=== PATIENT | female | born 1945 | race Two or more races ===

== ENCOUNTER 2017-11-27 11:59 | Emergency (ER) | payer MEDICARE, MEDICAID ==
[~2017-11-27] VITALS: Ht 152.4 cm; Wt 68.0 kg
[~2017-11-27 11:59] MED LIST: AMLO5TAB2 PO; ASPI-605 PO; METO25TA6 PO; MULT-1160 PO; NITR0.4T48 SL
[2017-11-27 12:17] VITALS: BP 129/66
== END 2017-11-27 14:00 | disposition home or self-care (01) ==
LOC: ER 12:04
DX: S86.911A Strain of unspecified muscle(s) and tendon(s) at lower leg level, right leg, initial encounter (principal); I10 Essential (primary) hypertension; Z79.82 Long term (current) use of aspirin; Z88.0 Allergy status to penicillin; X58.XXXA Exposure to other specified factors, initial encounter; Y93.89 Activity, other specified; Y92.89 Other specified places as the place of occurrence of the external cause; Y99.8 Other external cause status
CPT/HCPCS: 93971-TC; A4606; Z7610

== ENCOUNTER 2018-02-15 14:21 | Emergency (ER) | payer MEDICARE, MEDICAID ==
[~2018-02-15] VITALS: Ht 152.4 cm; Wt 68.0 kg
[~2018-02-15 14:21] MED LIST changes: -AMLO5TAB2 PO; +AMLO5TAB7 PO
[2018-02-15 14:38] VITALS: BP 126/97
== END 2018-02-15 15:22 | disposition home or self-care (01) ==
LOC: ER 14:32
DX: R59.0 Localized enlarged lymph nodes (principal); F32.9 Major depressive disorder, single episode, unspecified; F41.9 Anxiety disorder, unspecified; I11.0 Hypertensive heart disease with heart failure; I50.9 Heart failure, unspecified; Z79.82 Long term (current) use of aspirin; Z88.0 Allergy status to penicillin
CPT/HCPCS: A4606; Z7610

== ENCOUNTER 2018-10-21 22:22 | Emergency (ER) | payer MEDICARE, MEDICAID ==
[~2018-10-21] VITALS: Ht 160 cm; Wt 74.8 kg
--- NOTE | 2018-10-21 23:15 | NUR ---
PT BIBFAMILY COMPLAINING OF RIGHT EYE SWELLING WITH PURPLE DISCOLORATION AFTER TRIPPING FROM UNEVEN SIDEWALK. PT DENIES LOC, HEADACHE, N/V. PT IS AAOX4. RESPIRATIONS EVEN AND UNLABORED. NO ACUTE DISTRESS NOTED. WILL CONTINUE TO MONITOR
--- NOTE | 2018-10-21 23:20 | NUR ---
MD AT BEDSIDE FOR EVALUATION
[2018-10-21] MEDS ORDERED: TDAP [DIPH/PERTUSSIS/TET] 0.5 ML VIAL IM ONE ×2 (23:24→23:30)
--- NOTE | 2018-10-21 23:50 | NUR ---
PT BROUGHT BY RADIOLOGY FOR CT
--- NOTE | 2018-10-22 00:06 | NUR ---
PT RETURNED FROM CT
[2018-10-22] MEDS ORDERED: BACI/NEOM/POLY B OINT PKT 1 UDPKT PACKET TP ONE (01:30)
--- NOTE | 2018-10-22 01:35 | NUR ---
Patient discharged to home in stable condition. Written and verbal after care instructions given. Patient verbalizes understanding of instruction. Pt ambulatory with a steady gait.
[2018-10-22 01:36] VITALS: BP 128/74
== END 2018-10-22 01:38 | disposition home or self-care (01) ==
LOC: ER 22:24
DX: S06.0X9A Concussion with loss of consciousness of unspecified duration, initial encounter (principal); S00.83XA Contusion of other part of head, initial encounter; M54.2 Cervicalgia; F41.9 Anxiety disorder, unspecified; F32.9 Major depressive disorder, single episode, unspecified; I10 Essential (primary) hypertension; Z90.49 Acquired absence of other specified parts of digestive tract; Z90.710 Acquired absence of both cervix and uterus; Z98.890 Other specified postprocedural states; Z88.0 Allergy status to penicillin; Z79.82 Long term (current) use of aspirin; Z79.899 Other long term (current) drug therapy; W01.198A Fall on same level from slipping, tripping and stumbling with subsequent striking against other object, initial encounter; Y93.89 Activity, other specified; Y92.89 Other specified places as the place of occurrence of the external cause; Y99.8 Other external cause status
CPT/HCPCS: 70450-TC; 70486-TC; 72125-TC; 90715; A4606; Z7610

== ENCOUNTER 2019-02-11 22:05 | Inpatient (IN) | payer MEDICARE, MEDICAID ==
[~2019-02-11] VITALS: Ht 149.9 cm; Wt 69.6 kg
[~2019-02-11 22:05] MED LIST changes: -AMLO5TAB7 PO; +AMLO5TAB9 PO
--- NOTE | 2019-02-11 22:10 | NUR ---
PT [id number] FROM HOME C/O NONRADIATING SUBSTERNAL CP 08/10 X 30 MIN. 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 DENIES SOB. PT ON MONITOR IN BED 9 WITH FAMILY AT BEDSIDE. WILL CONTINUE TO MONITOR.
--- NOTE | 2019-02-11 22:17 | NUR ---
TECH AT BEDSIDE FOR EKG
[2019-02-11] MEDS ORDERED: IV NS 0.9% 1,000 ML BAG IV ONE (22:30)
[2019-02-11] MEDS ORDERED: NITROGLYCERIN 0.4 MG/TAB BOTTLE SL ONE (22:30)
--- NOTE | 2019-02-11 22:30 | NUR ---
PHLEB AT BEDSIDE FOR BLOOD DRAW
[2019-02-11] MEDS ORDERED: NITROGLYCERIN 0.4 MG/TAB BOTTLE ONE (22:34)
[2019-02-11 22:42] LABS: BASOPHILS % (AUTO) 0.6 % (0.0-2.0); EOSINOPHILS % (AUTO) 1.2 % (0.0-6.0); HEMATOCRIT 33 % (33-45); HEMOGLOBIN 10.9 g/dL (11.5-14.8); LYMPHOCYTES # (AUTO) 1.8 /CMM (0.8-4.8); LYMPHOCYTES % (AUTO) 30.9 % (20.0-44.0); MEAN CORPUSCULAR HGB CONC 33 g/dl (31.0-36.0); MEAN CORPUSCULAR VOLUME 81 fL (82-100); MONOCYTES # (AUTO) 0.4 /CMM (0.1-1.30); MONOCYTES % (AUTO) 7.6 % (2.0-12.0); NEUTROPHILS # (AUTO) 3.5 /CMM (1.8-8.9); NEUTROPHILS % (AUTO) 59.7 % (43.0-81.0); PLATELET COUNT (AUTO) 179 /CMM (150-450); RED BLOOD CELL COUNT(AUTO) 4.02 MIL/uL (4.0-5.2); WHITE BLOOD COUNT (AUTO) 5.9 K/uL (4.3-11.0)
[2019-02-11 22:51] LABS: CALCIUM, SERUM 9.3 mg/dL (8.5-10.1); CARBON DIOXIDE 29 mmol/L (21-32); CHLORIDE 104 mmol/L (98-107); CREATININE 0.9 mg/dL (0.6-1.3); GLUCOSE 115 mg/dL (74-106); SODIUM SERUM 141 mmol/L (136-145); UREA NITROGEN, BLOOD 26 mg/dL (7-18)
--- NOTE | 2019-02-11 22:56 | NUR ---
RADIOLOGY AT BEDSIDE FOR XRAY
--- NOTE | 2019-02-11 23:09 | NUR ---
BED 226-2
--- NOTE | 2019-02-11 23:09 | NUR ---
BED ASSIGNMENT 326-2
[2019-02-12] MEDS ORDERED: MORPHINE SULFATE INJ 2 MG/ML DISP.SYRIN IV STA (00:08)
--- NOTE | 2019-02-12 00:15 | NUR ---
REPORT GIVEN TO EMIR HINTON FOR BORIS
[2019-02-12] MEDS ORDERED: MORPHINE SULFATE INJ 2 MG/ML DISP.SYRIN ONE (00:18)
[2019-02-12 00:25] VITALS: BP 114/49
--- NOTE | 2019-02-12 00:25 | NUR ---
TELE/RN RECEIVE PATIENT FROM E.R. VIA GURNEY ACCOMPANIED BY DAUGHTER. PATIENT IS AWAKE, ALERT, ORIENTED, COMFORTABLE, WITH MILD CHEST PAIN AT THIS TIME, PLACED ON 2L O2, NO DISTRESS NOTED, ADMISSION DONE PER PROTOCOL, PLAN OF CARE DISCUSSED WITH THE PATIENT, WHO VERBALIZED UNDERSTANDING AND AGREEMENT, TAUGHT THE USE OF CALL LIGHT AND PLACED IT AT BEDSIDE WITHIN REACH. WILL MONITOR.
[2019-02-12] MEDS ORDERED: ACETAMINOPHEN 325 MG TABLET PO PRN (00:30)
[2019-02-12] MEDS ORDERED: ZOLPIDEM TARTRATE 5 MG TABLET PO PRN (00:30)
[2019-02-12] MEDS ORDERED: MORPHINE SULFATE INJ 2 MG/ML DISP.SYRIN IV PRN (00:30)
[2019-02-12] MEDS ORDERED: NITROGLYCERIN 0.4 MG/TAB BOTTLE SL PRN (00:30)
[2019-02-12] MEDS ORDERED: ONDANSETRON HCL/PF 4 MG/2 ML VIAL IVP PRN (00:30)
[2019-02-12] MEDS ORDERED: Z GUARD REMEDY 2 OZ OINT TP PRN (00:30)
[2019-02-12] MEDS ORDERED: ATORVASTATIN 10 MG TABLET PO SCH ×2 (00:30→09:00)
[2019-02-12] MEDS ORDERED: MAGNESIUM HYDROXIDE 30 ML UDC PO PRN (00:30)
--- NOTE | 2019-02-12 01:55 | NUR ---
TELE/RN PATIENT IS SLEEPING AT THIS TIME, APPEAR COMFORTABLE, BREATHING EVEN AND UNLABORED, CALL LIGHT IN REACH. WILL CONTINUE TO MONITOR.
--- NOTE | 2019-02-12 02:55 | NUR ---
TELE/RN PATIENT IS SLEEPING, AROUSABLE, NO CHANGE IN CONDITION, ENDORSED TO NEXT RN FOR CONTINUITY OF CARE.
[2019-02-12] MEDS ORDERED: PNEUMOCOCCAL 23-VAL P-SAC VAC 0.5 ML VIAL SQ ONE ×2 (03:00→18:30)
[2019-02-12 04:11] VITALS: BP 116/52
--- NOTE | 2019-02-12 06:00 | NUR ---
no significant changes overnight, slept well, sinus juanjose on monitor hr 45 the lowest when pt asleep. will continue to monitor.vss,afebrile.
--- NOTE | 2019-02-12 07:36 | NUR ---
MS EMIR Opening Notes Patient currently asleep, resting in bed. Semi-Fowlers position, supine. Alert and oriented x3, able to make needs known. No complaints of shortness of breath or chest pain at this time. Respirations even and unlabored on room air, no acute distress noted. Peripheral IV to the right AC 20 gauge, intact, patent and saline locked. Updated patient on current plan of care and safety measures. Safety and fall precautions in place: bed in lowest and locked position, side rails up x2, bed alarm on, call light and personal possessions within reach. Reminded patient of safety measures, verbalized understanding. Patient currently clean, dry and comfortable. NPO until cleared by cardiology. Will continue to monitor and intervene as needed. Addendum: 02/12/19 at 0738 by CECE WALL RN External satellite project site monitor in place: currently sinus bradycardia at 56 bpm.
[2019-02-12 08:15] VITALS: BP 117/79
[2019-02-12] MEDS ORDERED: NITR0.4T48 SL (08:28)
[2019-02-12] MEDS ORDERED: ASPI-1169 PO (08:28)
[2019-02-12] MEDS ORDERED: ASPIRIN 81 MG TAB.CHEW PO SCH (09:00)
[2019-02-12] MEDS ORDERED: CT SWABBABLE VALVE TRANS SET 1 EA INFUS.SET MC ONE (09:07)
[2019-02-12] MEDS ORDERED: IOHEXOL-350 100 ML VIAL IV ONE ×2 (09:07→10:38)
[2019-02-12] MEDS ORDERED: IV NS 0.9% 250 ML IV ONE (09:07)
[2019-02-12] MEDS ORDERED: METOPROLOL TARTRATE INJ 5 MG/5 ML AMPUL ONE (10:06)
[2019-02-12] MEDS ORDERED: NITROGLYCERIN 0.4 MG/TAB BOTTLE ONE (11:03)
[2019-02-12 16:11] VITALS: BP 117/61
[2019-02-12] MEDS ORDERED: ATOR10TA PO (17:24)
--- NOTE | 2019-02-12 19:14 | NUR ---
MS automobile rental representative Notes Patient currently alert and oriented x3, able to make needs known. [place]ian and Swedish speaking. No complaints of shortness of breath or pain at this time. Respirations even and unlabored on room air, no acute distress noted. Peripheral IV to the right AC 20 gauge removed with catheter tip intact. No redness, swelling or bleeding of the site noted. Ambulates with steady gait. Skin assessment completed upon discharge, no skin issues noted. Personal belongings and valuables discharged with patient, verified with signature on form. Discharge instructions, Exitcare and prescription given to patient with daughter present, all questions answered. Patient signed form. Reviewed signs and symptoms of when to return for emergency care. Administered PNA vaccine prior to discharge, reviewed adverse reactions with patient. Verbalized understanding and acknowledged via signature on form. ID band removed. Accompanied by staff member to front lobby of hospital, left via private car with family.
== END 2019-02-12 19:10 | disposition home or self-care (01) | DRG 313 ==
LOC: ER 22:07 → TELE 23:44 → MED 02-12 08:34
PROVIDERS: ADMIT Nurse Practitioner Acute Care; ATTEND Nurse Practitioner Acute Care
DX: R07.89 Other chest pain (principal); N17.0 Acute kidney failure with tubular necrosis; D68.59 Other primary thrombophilia; I10 Essential (primary) hypertension; I48.91 Unspecified atrial fibrillation; D63.8 Anemia in other chronic diseases classified elsewhere; E78.5 Hyperlipidemia, unspecified
CPT/HCPCS: 36415; 71045-TC; 75574; 80048-TC; 84484-TC; 85025-TC; 87081-TC; 93307-TC; G0378; J2270; J3490; J7040; J7050; Q9967

== ENCOUNTER 2019-12-21 20:07 | Emergency (ER) | payer MEDICARE, OTHER ==
[~2019-12-21] VITALS: Ht 149.9 cm; Wt 68.0 kg
[~2019-12-21 20:07] MED LIST changes: +ASPI-1169 PO; -ASPI-605 PO; +ATOR10TA PO
[2019-12-21 20:17] VITALS: BP 154/70
--- NOTE | 2019-12-21 20:18 | NUR ---
PT AAOX4. C/O FLU LIKE SYMPTOMS SINCE YESTERDAY, +COUGH, +SOB, 02 SAT ON ROOM AIR
--- NOTE | 2019-12-21 20:27 | NUR ---
XRAY AT BEDSIDE
--- NOTE | 2019-12-21 20:30 | NUR ---
INF SENT TO LAB
--- NOTE | 2019-12-21 20:57 | NUR ---
CALLED LAB. WAS TOLD INF IS BEING SENT TO [facility].
== END 2019-12-21 22:45 | disposition home or self-care (01) ==
LOC: ER 20:10
DX: R05 Cough (principal); R06.02 Shortness of breath; R50.9 Fever, unspecified; R11.0 Nausea; I10 Essential (primary) hypertension; I48.91 Unspecified atrial fibrillation; Z90.49 Acquired absence of other specified parts of digestive tract; Z90.710 Acquired absence of both cervix and uterus; Z88.0 Allergy status to penicillin; Z79.82 Long term (current) use of aspirin; Z79.899 Other long term (current) drug therapy
CPT/HCPCS: 71045-TC

== ENCOUNTER 2020-03-28 11:03 | Emergency (ER) | payer MEDICARE, MEDICAID ==
[~2020-03-28] VITALS: Ht 144.8 cm; Wt 68.0 kg
--- NOTE | 2020-03-28 11:05 | NUR ---
PT BIB DAUGHTER C/O L SIDED HEAD PAIN GOING TO NECK x 4 DAYS, PT IS AAOX4, NOT IN RESPIRATORY DISTRESS, HOOKED TO MONITOR, KEPT RESTED AND COMFORTABLE, WILL CONTINUE TO MONITPR.
--- NOTE | 2020-03-28 11:13 | NUR ---
AT BEDSIDE FOR EVAL.
[2020-03-28] MEDS ORDERED: PROCHLORPERAZINE EDISYLATE 10 MG/2 ML VIAL ONE (11:22)
[2020-03-28] MEDS ORDERED: MORPHINE SULFATE INJ 2 MG/ML DISP.SYRIN ONE (11:22)
--- NOTE | 2020-03-28 11:25 | NUR ---
IV LINE ESTABLISHED BLOOD DRAWN AND SENT TO LAB.
[2020-03-28 11:31] LABS: BASOPHILS # (AUTO) 0.1 /CMM (0.0-0.2); BASOPHILS % (AUTO) 1.8 % (0.0-2.0); EOSINOPHILS % (AUTO) 1.4 % (0.0-6.0); HEMATOCRIT 36 % (33-45); HEMOGLOBIN 11.6 g/dL (11.5-14.8); LYMPHOCYTES # (AUTO) 0.9 /CMM (0.8-4.8); LYMPHOCYTES % (AUTO) 18.7 % (20.0-44.0); MEAN CORPUSCULAR HGB CONC 33 g/dl (31.0-36.0); MEAN CORPUSCULAR VOLUME 83 fL (82-100); MONOCYTES # (AUTO) 0.3 /CMM (0.1-1.30); MONOCYTES % (AUTO) 6.9 % (2.0-12.0); NEUTROPHILS # (AUTO) 3.5 /CMM (1.8-8.9); NEUTROPHILS % (AUTO) 71.2 % (43.0-81.0); PLATELET COUNT (AUTO) 196 /CMM (150-450); RED BLOOD CELL COUNT(AUTO) 4.29 MIL/uL (4.0-5.2); WHITE BLOOD COUNT (AUTO) 4.9 K/uL (4.3-11.0)
[2020-03-28] MEDS: MORPHINE SULFATE INJ 2 MG/ML DISP.SYRIN IV ONE (11:31)
[2020-03-28] MEDS: PROCHLORPERAZINE EDISYLATE 10 MG/2 ML VIAL IVP ONE (11:31)
[2020-03-28 12:10] LABS: CALCIUM, SERUM 9.4 mg/dL (8.5-10.1); CREATININE 0.9 mg/dL (0.6-1.3); POTASSIUM 3.8 mmol/L (3.5-5.1)
[2020-03-28 12:16] VITALS: BP 135/76
--- NOTE | 2020-03-28 12:16 | NUR ---
Patient discharged to home in stable condition. Written and verbal after care instructions given. Patient verbalizes understanding of instruction.IV removed. Catheter intact and site benign. Pressure and 4x4 applied to site. No bleeding noted. Pt ambulatory with a steady gait
== END 2020-03-28 12:17 | disposition home or self-care (01) ==
LOC: ER 11:09
DX: R51 Headache (principal); I10 Essential (primary) hypertension; I48.91 Unspecified atrial fibrillation; Z90.49 Acquired absence of other specified parts of digestive tract; Z90.710 Acquired absence of both cervix and uterus; Z88.0 Allergy status to penicillin; Z79.899 Other long term (current) drug therapy; Z79.82 Long term (current) use of aspirin
CPT/HCPCS: 36415; 80048; 85025; 96374; 99283; J0780; J2270

== ENCOUNTER 2020-12-23 23:05 | Emergency (ER) | payer MEDICARE, MEDICAID ==
[~2020-12-23] VITALS: Ht 152.4 cm; Wt 68.0 kg
[~2020-12-23 23:05] MED LIST changes: +AMLO-212 PO; -AMLO5TAB9 PO
[2020-12-23 23:53] LABS: BASOPHILS % (AUTO) 0.5 % (0.0-2.0); HEMATOCRIT 35 % (33-45); HEMOGLOBIN 11.5 g/dL (11.5-14.8); LYMPHOCYTES # (AUTO) 1.7 /CMM (0.8-4.8); MEAN CORPUSCULAR HGB CONC 32 g/dl (31.0-36.0); MEAN CORPUSCULAR VOLUME 84 fL (82-100); MONOCYTES # (AUTO) 0.4 /CMM (0.1-1.30); MONOCYTES % (AUTO) 9.4 % (2.0-12.0); NEUTROPHILS # (AUTO) 2.1 /CMM (1.8-8.9); NEUTROPHILS % (AUTO) 47.1 % (43.0-81.0); PLATELET COUNT (AUTO) 183 /CMM (150-450); RED BLOOD CELL COUNT(AUTO) 4.22 MIL/uL (4.0-5.2); WHITE BLOOD COUNT (AUTO) 4.5 K/uL (4.3-11.0)
[2020-12-24] MEDS ORDERED: IV NS 0.9% 500 ML BAG IV ONE
[2020-12-24 00:07] LABS: CALCIUM, SERUM 9.5 mg/dL (8.5-10.1); CREATININE 0.9 mg/dL (0.6-1.3)
[2020-12-24] MEDS ORDERED: IBUP-1953 PO (00:45)
--- NOTE | 2020-12-24 01:05 | NUR ---
IV removed. Catheter intact and site benign. Pressure and 4x4 applied to site. No bleeding noted.
[2020-12-24 01:07] VITALS: BP 134/61
== END 2020-12-24 01:08 | disposition home or self-care (01) ==
LOC: ER 23:08
DX: T88.1XXA Other complications following immunization, not elsewhere classified, initial encounter (principal); M79.18 Myalgia, other site; I10 Essential (primary) hypertension; Z90.49 Acquired absence of other specified parts of digestive tract; Z90.710 Acquired absence of both cervix and uterus; Z88.0 Allergy status to penicillin; Z79.82 Long term (current) use of aspirin; Z79.899 Other long term (current) drug therapy
CPT/HCPCS: 36415; 80048; 85025; 99283; J7030

== ENCOUNTER 2021-10-16 18:30 | Emergency (ER) | payer MEDICARE, MEDICAID ==
[~2021-10-16] VITALS: Ht 149.9 cm; Wt 69.4 kg
[~2021-10-16 18:30] MED LIST changes: +IBUP-1953 PO
--- NOTE | 2021-10-16 19:02 | NUR ---
The patient presesnt to ER for c/o chest discomfort 8/10 and palpitation x 2 hrs. also c/o cough and congestion x 1 wk. Respiration regular and unlabored. Attached to the monitor. Warm blanket provided for comfort. Will continue to monitor the patient.
--- NOTE | 2021-10-16 19:13 | NUR ---
IV LINE IS ESTABLISHED, BLOOD SPECIMEN COLLECTED AND SENT TO THE LAB. THE LINE IS SALINE LOCKED.
--- NOTE | 2021-10-16 19:20 | NUR ---
REPORT GIVEN TO NURSE ROSA FOR BOR[facility]
[2021-10-16 19:58] LABS: CALCIUM, SERUM 9.1 mg/dL (8.5-10.1); CARBON DIOXIDE 29 mmol/L (21-32); CHLORIDE 101 mmol/L (98-107); GLUCOSE 106 mg/dL (74-106); POTASSIUM 3.9 mmol/L (3.5-5.1); SODIUM SERUM 137 mmol/L (136-145); UREA NITROGEN, BLOOD 16 mg/dL (7-18)
[2021-10-16] MEDS ORDERED: LORAZEPAM 0.5 MG TABLET ONE (20:11)
[2021-10-16] MEDS: LORAZEPAM 0.5 MG TABLET PO ONE (20:15)
[2021-10-16 20:26] LABS: BASOPHILS % (AUTO) 0.7 % (0.0-2.0); EOSINOPHILS % (AUTO) 1.2 % (0.0-6.0); HEMATOCRIT 37 % (33-45); HEMOGLOBIN 11.7 g/dL (11.5-14.8); LYMPHOCYTES # (AUTO) 1.9 K/uL (0.8-4.8); MEAN CORPUSCULAR HGB CONC 32 g/dl (31.0-36.0); MEAN CORPUSCULAR VOLUME 84 fL (82-100); MONOCYTES # (AUTO) 0.5 K/uL (0.1-1.30); MONOCYTES % (AUTO) 7.7 % (2.0-12.0); NEUTROPHILS # (AUTO) 4.5 K/uL (1.8-8.9); NEUTROPHILS % (AUTO) 63.4 % (43.0-81.0); PLATELET COUNT (AUTO) 233 K/uL (150-450); RED BLOOD CELL COUNT(AUTO) 4.36 MIL/uL (4.0-5.2); WHITE BLOOD COUNT (AUTO) 7.2 K/uL (4.3-11.0)
[2021-10-16] MEDS ORDERED: LORA-258 PO (20:54)
[2021-10-16 21:09] VITALS: BP 135/70
== END 2021-10-16 21:10 | disposition home or self-care (01) ==
LOC: ER 18:32
DX: R07.89 Other chest pain (principal); F41.9 Anxiety disorder, unspecified; Z88.0 Allergy status to penicillin; Z79.899 Other long term (current) drug therapy
CPT/HCPCS: 36415; 71045-TC; 80048-TC; 84484-TC; 85025-TC

== ENCOUNTER 2021-12-02 09:59 | Emergency (ER) | payer MEDICARE, OTHER ==
[~2021-12-02] VITALS: Ht 152.4 cm; Wt 68.0 kg
[~2021-12-02 09:59] MED LIST changes: +LORA-258 PO
--- NOTE | 2021-12-02 10:16 | NUR ---
"Chest Pain started around 4am Pressure. Non-radiating". Rates pain 4/10. In room air and denies SOB. Respiration regular and unlabored. Will continue to monitor the patient.
[2021-12-02] MEDS ORDERED: IV NS 0.9% 500 ML BAG IV ONE (10:30)
[2021-12-02 11:03] LABS: BASOPHILS % (AUTO) 0.4 % (0.0-2.0); EOSINOPHILS % (AUTO) 1.7 % (0.0-6.0); HEMATOCRIT 36 % (33-45); HEMOGLOBIN 11.7 g/dL (11.5-14.8); LYMPHOCYTES # (AUTO) 1.4 K/uL (0.8-4.8); LYMPHOCYTES % (AUTO) 25.5 % (20.0-44.0); MEAN CORPUSCULAR HGB CONC 33 g/dl (31.0-36.0); MEAN CORPUSCULAR VOLUME 83 fL (82-100); MONOCYTES # (AUTO) 0.4 K/uL (0.1-1.30); MONOCYTES % (AUTO) 7.9 % (2.0-12.0); NEUTROPHILS # (AUTO) 3.4 K/uL (1.8-8.9); NEUTROPHILS % (AUTO) 64.5 % (43.0-81.0); PLATELET COUNT (AUTO) 208 K/uL (150-450); RED BLOOD CELL COUNT(AUTO) 4.28 MIL/uL (4.0-5.2); WHITE BLOOD COUNT (AUTO) 5.3 K/uL (4.3-11.0)
[2021-12-02 11:53] LABS: CALCIUM, SERUM 9.5 mg/dL (8.5-10.1); CARBON DIOXIDE 29 mmol/L (21-32); CHLORIDE 101 mmol/L (98-107); GLUCOSE 112 mg/dL (74-106); SODIUM SERUM 138 mmol/L (136-145); UREA NITROGEN, BLOOD 13 mg/dL (7-18)
[2021-12-02] MEDS ORDERED: KETOROLAC TROMETHAMINE INJ 30 MG/ML VIAL IV ONE (14:00)
[2021-12-02] MEDS ORDERED: KETOROLAC TROMETHAMINE INJ 30 MG/ML VIAL ONE (14:07)
--- NOTE | 2021-12-02 15:30 | NUR ---
Patient discharged to home in stable condition. Written and verbal after care instructions given. Patient verbalizes understanding of instruction.
[2021-12-02 15:31] VITALS: BP 135/76
== END 2021-12-02 15:31 | disposition home or self-care (01) ==
LOC: ER 10:01
DX: R07.89 Other chest pain (principal); I10 Essential (primary) hypertension; I48.91 Unspecified atrial fibrillation; Z90.49 Acquired absence of other specified parts of digestive tract; Z98.890 Other specified postprocedural states; Z88.0 Allergy status to penicillin; Z79.899 Other long term (current) drug therapy; Z79.82 Long term (current) use of aspirin
CPT/HCPCS: 36415; 71045; 80048; 83880; 84484 ×2; 85025; 93005; 96374; 99285; J1885; J7040

== ENCOUNTER 2024-03-14 15:17 | Emergency (ER) | payer MEDICARE, OTHER ==
[~2024-03-14] VITALS: Ht 157.5 cm; Wt 68.0 kg
[2024-03-14 16:54] LABS: BASOPHILS % (AUTO) 0.6 % (0.0-2.0); EOSINOPHILS # (AUTO) 0.1 K/uL (0.0-0.7); EOSINOPHILS % (AUTO) 2.2 % (0.0-6.0); HEMATOCRIT 34 % (33-45); LYMPHOCYTES # (AUTO) 1.4 K/uL (0.8-4.8); LYMPHOCYTES % (AUTO) 28.2 % (20.0-44.0); MEAN CORPUSCULAR HEMOGLOBIN 26 PG (26.0-33.0); MEAN CORPUSCULAR HGB CONC 32 g/dl (31.0-36.0); MEAN CORPUSCULAR VOLUME 81 fL (82-100); MONOCYTES # (AUTO) 0.4 K/uL (0.1-1.30); MONOCYTES % (AUTO) 7.9 % (2.0-12.0); NEUTROPHILS # (AUTO) 3.1 K/uL (1.8-8.9); NEUTROPHILS % (AUTO) 61.1 % (43.0-81.0); PLATELET COUNT (AUTO) 183 K/uL (150-450); RED BLOOD CELL COUNT(AUTO) 4.23 MIL/uL (4.0-5.2); RED CELL DISTRIBUTION WIDTH 13.9 % (11.5-15.0)
[2024-03-14 17:13] LABS: CALCIUM, SERUM 8.8 mg/dL (8.5-10.1); CARBON DIOXIDE 30 mmol/L (21-32); CHLORIDE 105 mmol/L (98-107); CREATININE 1.1 mg/dL (0.6-1.3); GLUCOSE 110 mg/dL (74-106); POTASSIUM 3.8 mmol/L (3.5-5.1); SODIUM SERUM 139 mmol/L (136-145); UREA NITROGEN, BLOOD 16 mg/dL (7-18)
[2024-03-14 17:29] LABS: ALANINE AMINOTRANSFERASE 25 U/L (12-78); ALBUMIN 3.5 g/dL (3.4-5.0); ALKALINE PHOSPHATASE 152 U/L (46-116); ASPARTATE AMINOTRANSFERASE 22 U/L (15-37); BILIRUBIN,DIRECT 0.1 mg/dL (0.0-0.2); BILIRUBIN,TOTAL 0.3 mg/dL (0.2-1.0); NT-PRO BNP 684 pg/mL (0-125); TOTAL PROTEIN, SERUM 7.8 g/dL (6.4-8.2)
[2024-03-14 18:48] VITALS: BP 140/44; TEMP 98.7; O2SAT 100
== END 2024-03-14 18:49 | disposition home or self-care (01) ==
LOC: ER 15:21
DX: R06.02 Shortness of breath (principal); R07.89 Other chest pain; I10 Essential (primary) hypertension; D64.9 Anemia, unspecified; Z86.79 Personal history of other diseases of the circulatory system; Z90.49 Acquired absence of other specified parts of digestive tract; Z90.710 Acquired absence of both cervix and uterus; Z88.0 Allergy status to penicillin
CPT/HCPCS: 36415; 71045-TC; 80048-TC; 80076-TC; 83880; 84484-TC; 85025-TC

== ENCOUNTER 2025-01-01 11:28 | Inpatient (IN) | payer MEDICARE, OTHER ==
[~2025-01-01] VITALS: Ht 167.6 cm; Wt 62.6 kg
[2025-01-01] MEDS: IV NS 0.9% 1,000 ML BAG IV ONE (12:11)
[2025-01-01 12:42] LABS: CALCIUM, SERUM 10.3 mg/dL (8.5-10.1); CARBON DIOXIDE 31 mmol/L (21-32); CHLORIDE 106 mmol/L (98-107); GLUCOSE 122 mg/dL (74-106); POTASSIUM 4.1 mmol/L (3.5-5.1); SODIUM SERUM 141 mmol/L (136-145); UREA NITROGEN, BLOOD 10 mg/dL (7-18)
[2025-01-01] MEDS ORDERED: TRAZ-182 PO (12:43)
[2025-01-01] MEDS ORDERED: METO-357 PO (12:43)
[2025-01-01] MEDS ORDERED: APIX5TAB PO (12:43)
[2025-01-01 12:45] LABS: BASOPHILS # (AUTO) 0.1 K/uL (0.0-0.2); BASOPHILS % (AUTO) 1.2 % (0.0-2.0); EOSINOPHILS # (AUTO) 0.2 K/uL (0.0-0.7); EOSINOPHILS % (AUTO) 3.7 % (0.0-6.0); HEMATOCRIT 35 % (33-45); HEMOGLOBIN 11.3 g/dL (11.5-14.8); LYMPHOCYTES # (AUTO) 0.8 K/uL (0.8-4.8); LYMPHOCYTES % (AUTO) 16.2 % (20.0-44.0); MEAN CORPUSCULAR HEMOGLOBIN 27 PG (26.0-33.0); MEAN CORPUSCULAR HGB CONC 33 g/dl (31.0-36.0); MEAN CORPUSCULAR VOLUME 81 fL (82-100); MONOCYTES # (AUTO) 0.4 K/uL (0.1-1.30); MONOCYTES % (AUTO) 7.3 % (2.0-12.0); NEUTROPHILS # (AUTO) 3.7 K/uL (1.8-8.9); NEUTROPHILS % (AUTO) 71.6 % (43.0-81.0); PLATELET COUNT (AUTO) 296 K/uL (150-450); RED BLOOD CELL COUNT(AUTO) 4.25 MIL/uL (4.0-5.2); RED CELL DISTRIBUTION WIDTH 13.4 % (11.5-15.0); WHITE BLOOD COUNT (AUTO) 5.1 K/uL (4.3-11.0)
[2025-01-01 12:48] LABS: INR 1.07 (0.91-1.10); PARTIAL THROMBOPLASTIN TIME 23.9 SEC (24.3-34.3); PROTHROMBIN TIME 11.3 SECS (9.2-11.1)
[2025-01-01 12:51] LABS: ALANINE AMINOTRANSFERASE 28 U/L (12-78); ALBUMIN 3.5 g/dL (3.4-5.0); ALKALINE PHOSPHATASE 150 U/L (46-116); ASPARTATE AMINOTRANSFERASE 22 U/L (15-37); BILIRUBIN,DIRECT 0.1 mg/dL (0.0-0.2); BILIRUBIN,TOTAL 0.3 mg/dL (0.2-1.0); NT-PRO BNP 908 pg/mL (0-125); TOTAL PROTEIN, SERUM 8.1 g/dL (6.4-8.2)
[2025-01-01] MEDS ORDERED: DILTIAZEM HCL 50 MG IV ONE (13:14)
[2025-01-01] MEDS: DILTIAZEM HCL 50 MG IV IV ONE (13:26)
[2025-01-01] MEDS ORDERED: MORPHINE SULFATE INJ 2 MG/ML DISP.SYRIN IV PRN (13:30)
[2025-01-01] MEDS ORDERED: hydrALAZINE HCL IV 20 MG VIAL IV PRN (13:30)
[2025-01-01] MEDS ORDERED: ACETAMINOPHEN 325 MG TABLET PO PRN (13:30)
[2025-01-01] MEDS ORDERED: ONDANSETRON HCL/PF 4 MG/2 ML VIAL IVP PRN (13:30)
[2025-01-01] MEDS: METOPROLOL SUCCINATE 50 MG TAB.SR.24H PO SCH (14:19)
[2025-01-01 16:00] VITALS: BP 125/95; TEMP 98; O2SAT 98
[2025-01-01 16:16] LABS: THYROID STIMULATING HORMONE 2.99 uIU/mL (0.358-3.74)
[2025-01-01] MEDS: APIXABAN 5 MG TABLET PO SCH (16:25)
[2025-01-01] MEDS: DILTIAZEM HCL 30 MG TABLET PO SCH (17:47)
[2025-01-01 20:00] VITALS: BP 122/78; TEMP 98.1; O2SAT 95
[2025-01-01] MEDS: TRAZODONE 50 MG TABLET PO SCH (22:34)
[2025-01-02] VITALS (8 sets, daily range): BP systolic 93–134; BP diastolic 55–95; TEMP 97.9–98.4; O2SAT 96–100
[2025-01-02] MEDS: METOPROLOL SUCCINATE 50 MG TAB.SR.24H PO SCH (08:45)
[2025-01-02] MEDS: AMLODIPINE BESYLATE 5 MG TABLET PO SCH (08:46)
[2025-01-02 09:11] LABS: BASOPHILS % (AUTO) 0.7 % (0.0-2.0); EOSINOPHILS # (AUTO) 0.3 K/uL (0.0-0.7); EOSINOPHILS % (AUTO) 3.8 % (0.0-6.0); HEMATOCRIT 42 % (33-45); HEMOGLOBIN 13.4 g/dL (11.5-14.8); LYMPHOCYTES # (AUTO) 2.2 K/uL (0.8-4.8); LYMPHOCYTES % (AUTO) 33.1 % (20.0-44.0); MEAN CORPUSCULAR HEMOGLOBIN 27 PG (26.0-33.0); MEAN CORPUSCULAR HGB CONC 32 g/dl (31.0-36.0); MEAN CORPUSCULAR VOLUME 84 fL (82-100); MONOCYTES # (AUTO) 0.5 K/uL (0.1-1.30); MONOCYTES % (AUTO) 7.3 % (2.0-12.0); NEUTROPHILS # (AUTO) 3.6 K/uL (1.8-8.9); NEUTROPHILS % (AUTO) 55.1 % (43.0-81.0); PLATELET COUNT (AUTO) 266 K/uL (150-450); RED BLOOD CELL COUNT(AUTO) 4.93 MIL/uL (4.0-5.2); RED CELL DISTRIBUTION WIDTH 13.7 % (11.5-15.0); WHITE BLOOD COUNT (AUTO) 6.5 K/uL (4.3-11.0)
[2025-01-02 09:22] LABS: ALBUMIN 3.6 g/dL (3.4-5.0); BILIRUBIN,TOTAL 0.5 mg/dL (0.2-1.0); CALCIUM, SERUM 10.2 mg/dL (8.5-10.1); CREATININE 1.1 mg/dL (0.6-1.3); MAGNESIUM 2.5 mg/dL (1.8-2.4); PHOSPHORUS 3.4 mg/dL (2.5-4.9); POTASSIUM 4.6 mmol/L (3.5-5.1); TOTAL PROTEIN, SERUM 8.5 g/dL (6.4-8.2)
[2025-01-02] MEDS: LEVALBUTEROL HCL NEB 1.25 MG/0.5 ML VIAL.NEB NEB SCH (11:30)
[2025-01-02] MEDS: DILTIAZEM HCL 30 MG TABLET PO SCH (12:00)
[2025-01-02] MEDS: MENTHOL/CETYLPYRD (CEPACOL) 1 LOZ LOZENGE PO PRN (12:13)
[2025-01-03] VITALS: BP 141/60; TEMP 97.7; O2SAT 99
[2025-01-03 04:00] VITALS: BP 138/71; TEMP 97.7; O2SAT 96
[2025-01-03 08:00] VITALS: BP 148/64; TEMP 98.2; O2SAT 99
[2025-01-03 08:12] VITALS: O2SAT 97
[2025-01-03 08:22] VITALS: O2SAT 100; O2SAT 99
[2025-01-03 09:24] VITALS: BP 148/64
[2025-01-03] MEDS ORDERED: DILT-2 PO (10:28)
== END 2025-01-03 12:05 | disposition home or self-care (01) | DRG 153 ==
LOC: ER 11:40 → TELE1 13:20
PROVIDERS: ADMIT Internal Medicine; ATTEND Internal Medicine
DX: J11.1 Influenza due to unidentified influenza virus with other respiratory manifestations (principal); I48.91 Unspecified atrial fibrillation; E78.5 Hyperlipidemia, unspecified; I10 Essential (primary) hypertension; D64.9 Anemia, unspecified; Z20.822 Contact with and (suspected) exposure to COVID-19; Z90.710 Acquired absence of both cervix and uterus; Z90.49 Acquired absence of other specified parts of digestive tract; Z88.0 Allergy status to penicillin; Z79.01 Long term (current) use of anticoagulants; Z79.899 Other long term (current) drug therapy; Z91.148 Patient's other noncompliance with medication regimen for other reason; F41.9 Anxiety disorder, unspecified; F32.A Depression, unspecified; Z87.891 Personal history of nicotine dependence; G47.00 Insomnia, unspecified
CPT/HCPCS: 36415; 71045-TC; 80048-TC; 80053-TC; 80076-TC; 83735-TC; 83880; 84100-TC; 84439-TC; 84443-TC; 84484-TC; 85025-TC; 85730-TC; 93307-TC; 94799-TC; G0378; J3490; J7030

== ENCOUNTER 2025-02-05 00:12 | Emergency (ER) | payer MEDICARE, OTHER ==
[~2025-02-05] VITALS: Ht 149.9 cm; Wt 70.8 kg
[~2025-02-05 00:12] MED LIST changes: +APIX5TAB PO; -ASPI-1169 PO; -ATOR10TA PO; +DILT-2 PO; -IBUP-1953 PO; -LORA-258 PO; +METO-357 PO; -METO25TA6 PO; -MULT-1160 PO; -NITR0.4T48 SL; +TRAZ-182 PO
[2025-02-05 00:30] VITALS: BP 154/90; TEMP 98.3; O2SAT 99
[2025-02-05] MEDS ORDERED: TOBR5DRO2 RIGHTEYE (00:39)
== END 2025-02-05 00:57 | disposition home or self-care (01) ==
LOC: ER 00:14
DX: H10.31 Unspecified acute conjunctivitis, right eye (principal); I10 Essential (primary) hypertension; I48.91 Unspecified atrial fibrillation; Z79.01 Long term (current) use of anticoagulants; Z79.899 Other long term (current) drug therapy; Z86.73 Personal history of transient ischemic attack (TIA), and cerebral infarction without residual deficits; Z88.0 Allergy status to penicillin; Z90.49 Acquired absence of other specified parts of digestive tract; Z90.710 Acquired absence of both cervix and uterus

== ENCOUNTER 2025-07-18 02:56 | Emergency (ER) | payer MEDICARE, OTHER ==
[~2025-07-18] VITALS: Ht 149.9 cm; Wt 74.4 kg
[~2025-07-18 02:56] MED LIST changes: +TOBR5DRO2 RIGHTEYE
[2025-07-18 03:03] VITALS: TEMP 98
[2025-07-18 03:44] LABS: PLATELET COUNT (AUTO) 201 K/uL (150-450); RED BLOOD CELL COUNT(AUTO) 4.25 MIL/uL (4.0-5.2); RED CELL DISTRIBUTION WIDTH 15.0 % (11.5-15.0); WHITE BLOOD COUNT (AUTO) 6.2 K/uL (4.3-11.0)
[2025-07-18 03:56] LABS: CALCIUM, SERUM 9.9 mg/dL (8.5-10.1); CREATININE 1.2 mg/dL (0.6-1.3); SODIUM SERUM 139.0 mmol/L (136-145); UREA NITROGEN, BLOOD 16.0 mg/dL (7-18)
[2025-07-18 04:06] LABS: ASPARTATE AMINOTRANSFERASE 24.0 U/L (15-37); TOTAL PROTEIN, SERUM 7.4 g/dL (6.4-8.2)
[2025-07-18 04:19] LABS: NT-PRO BNP 2464.0 pg/mL (0-125)
[2025-07-18 07:06] VITALS: BP 139/60; O2SAT 97
[2025-07-18 07:27] LABS: APPEARANCE,URINE CLEAR (CLEAR); BLOOD, URINE NEGATIVE Ery/uL (NEGATIVE); LEUKOCYTE ESTERASE ,URINE NEGATIVE (NEGATIVE); NITRITE, URINE NEGATIVE (NEGATIVE); UGLUCOSE NEGATIVE (NEGATIVE)
== END 2025-07-18 07:07 | disposition left against medical advice (07) ==
LOC: ER 03:12
DX: G45.9 Transient cerebral ischemic attack, unspecified (principal); R41.0 Disorientation, unspecified; F41.9 Anxiety disorder, unspecified; I10 Essential (primary) hypertension; Z79.01 Long term (current) use of anticoagulants; Z79.899 Other long term (current) drug therapy; Z88.0 Allergy status to penicillin; Z90.49 Acquired absence of other specified parts of digestive tract; Z90.710 Acquired absence of both cervix and uterus; Z86.79 Personal history of other diseases of the circulatory system
CPT/HCPCS: 36415; 70450-TC; 71045-TC; 80053-TC; 82962-TC; 83880; 84484-TC; 85025-TC; 85730-TC